=== PATIENT | female | born 1965 | race African-American/Black ===

== ENCOUNTER 2019-08-18 15:32 | Emergency (ER) | payer BC, SELFPAY ==
[2019-08-18] MEDS ORDERED: Ibuprofen 800 MG TAB ONE (16:35)
== END 2019-08-18 16:30 | disposition home or self-care (01) ==
LOC: BURERS 15:32
DX: K05.00 Acute gingivitis, plaque induced (principal); S00.512A Abrasion of oral cavity, initial encounter; F17.210 Nicotine dependence, cigarettes, uncomplicated; I10 Essential (primary) hypertension; X58.XXXA Exposure to other specified factors, initial encounter
CPT/HCPCS: 99282

== ENCOUNTER 2024-02-29 19:23 | Emergency (ER) | payer OTHER ==
[2024-02-29] MEDS ORDERED: Ketorolac Tromethamine 60 MG/2 ML VIAL ONE (20:11)
== END 2024-02-29 20:27 | disposition home or self-care (01) ==
LOC: BURERS 19:23
DX: G50.0 Trigeminal neuralgia (principal); I10 Essential (primary) hypertension; E11.9 Type 2 diabetes mellitus without complications; F17.210 Nicotine dependence, cigarettes, uncomplicated; F17.290 Nicotine dependence, other tobacco product, uncomplicated; Z79.84 Long term (current) use of oral hypoglycemic drugs; Z79.899 Other long term (current) drug therapy
CPT/HCPCS: 96372; 99283; J1885